=== PATIENT | male | born 1955 | race Caucasian/White ===

== ENCOUNTER 2016-02-13 16:06 | Emergency (ER) ==
[2016-02-13] MEDS ORDERED: ASPIRIN PO STA (16:10)
--- NOTE | 2016-02-13 16:56 | PROVIDER DOCUMENTATION ---
HPI-Chest Pain - General Source: patient - History of Present Illness-CP Location: reports: central Chest Pain Radiation: reports: other (R side of chest) Quality of Pain: reports: pressure, sharp Severity in ED: moderate Onset/Duration: last night Timing: still present, intermittent, getting worse Context/Activities at Onset: reports: light activity Modifying Factors: improves with: nothing Associated Symptoms: reports: diaphoresis, nausea. denies: abdominal pain, back pain, fatigue, fever/chills, shortness of breath, vomiting Nitro Today/Relief: no nitro taken today Aspirin Treatment Today: 325 mg x 1 (plus 1), provided at home Prior Chest Pain/Cardiac Workup: reports: heart attack (4) Similar Symptoms Previously?: Yes Recently Seen Here or By Another Healthcare Provider: No <Betzaida Ya - Last Filed: 02/13/16 17:24> <Erickson Page - Last Filed: 02/13/16 19:26> - General Chief Complaint: Chest Pain Stated Complaint: CHEST PAIN Time Seen by Provider: 02/13/16 16:44 Allergies/Adverse Reactions: Patient Allergies Allergy/AdvReac Type Severity Reaction Status Date / Time hydrocodone AdvReac NAUSEA/VOMI Verified 02/13/16 16:15 TING morphine AdvReac NAUSEA/VOMI Verified 02/13/16 16:15 TING Home Medications: Aspirin 325 mg PO DAILY 11/25/14 Metoprolol Succinate E.r. [Toprol Xl] 50 mg PO DAILY 11/25/14 Atorvastatin Calcium [Lipitor] 10 mg PO DAILY 10/21/15 Metoprolol [Lopressor] 50 mg PO DAILY 10/21/15 Review of Systems - Adult - REVIEW OF SYSTEMS - ADULT Constitutional: denies: chills, fever Eyes: denies: blurred vision, double vision Ears, Nose, Mouth & Throat: denies: ear pain, nose pain, throat pain Cardiovascular: reports: chest pain, irregular heart rate (tachy), palpitations . denies: heart murmur Respiratory: denies: cough, shortness of breath, wheezing Gastrointestinal: reports: nausea. denies: abdominal pain, diarrhea, vomiting Genitourinary: denies: dysuria, hematuria Musculoskeletal: denies: bone pain, joint pain, neck pain Integumentary: denies: hives, itching Neurological: denies: dizziness/vertigo, headache/migraines Psychiatric: reports: no symptoms reported Endocrine: reports: no symptoms reported Hematologic/Lymphatic: reports: no symptoms reported Allergic/Immunologic: reports: no symptoms reported All Other Systems: Reviewed and Negative <Betzaida Ya - Last Filed: 02/13/16 17:24> Past History - Adult - PAST MEDICAL HISTORY-ADULT Review of Records: reports: Nursing Assessment Review, Medications Reviewed, Social history reviewed & non-contributory. Major Childhood Illnesses: reports: denies history Cardiovascular: reports: CAD, CHF, HTN, hyperlipidemia, [place] Respiratory: reports: other (smoker) Gastrointestinal: reports: denies history Obstetrical/Gynecological: reports: denies history Genitourinary: reports: kidney stones Musculoskeletal: reports: chronic pain (chronic back pain with report of cauda equina syndrome) Neurological: reports: other (cauda equina) Psychiatric: reports: ptsd Endocrine/Immune: reports: denies history Other Conditions: reports: other (cauda equina) - PRIOR SURGERIES/PROCEDURES Surgical/Procedure History: reports: appendectomy, cardiac stent (5), hernia repair, other (testicular) - PRIOR HOSPITALIZATIONS Prior Hospitalizations: reports: for other non-related - IMMUNIZATION STATUS Childhood Immunizations: See Nurse Assessment Flu Vaccine: See Nurse Assessment - FAMILY HISTORY Family History: reviewed, not pertinent - SOCIAL HISTORY Smoking: cigarettes, greater than 1 pack/day Provider spent 3-5 mins advising pt. on dangers of tobacco.: Discussed manners to quit use, and f/u contacts for add'l counseling. Substance Use: alcohol Alcohol Use Frequency: occasionally Number of drinks per typical drinking period:: 3-4 drinks Living Situation: family <Betzaida Ya - Last Filed: 02/13/16 17:24> Physical Exam-General - PHYSICAL EXAM-ADULT Initial Vital Signs Reviewed: Yes - CONSTITUTIONAL General Appearance: appears well, alert, mild distress - EYES Eyes: PERRL/EOMI, pink conjunctivae - HEAD, EARS, NOSE, MOUTH & THROAT HENMT: normocephalic/atraumatic, moist mucous membranes, normal ENT inspection - NECK Neck: non-tender, full range of motion, normal inspection - RESPIRATORY Respiratory: chest non-tender, lungs clear, normal breath sounds, increased rate - CARDIOVASCULAR Cardiovascular: normal peripheral pulses, no edema, tachycardia - GASTROINTESTINAL (ABDOMEN) Abdominal Exam: normal bowel sounds, non tender, soft - LYMPHATIC Lymphatic: no adenopathy - MUSCULOSKELETAL Back Exam: normal inspection, no CVA tenderness, no vertebral tenderness Extremity: normal range of motion, non-tender, normal gait - SKIN Integumentary: normal color, normal turgor, warm/dry, diaphoresis - NEUROLOGIC Neurologic: developer architect II-XII nml as tested, grossly normal, no motor/sensory deficits - PSYCHIATRIC Psych/Mental Status: normal mood/affect, normal thought content, normal thought process, oriented x 3 <Betzaida Ya - Last Filed: 02/13/16 17:24> Progress - CHANGE OF SHIFT REPORT (ED Provider) Report Given and Care Transferred to:: Dr. Hollins Time of Transfer: 17:55 Items Pending: Labs, Other (EKG) <Betzaida Ya - Last Filed: 02/13/16 17:24> - EKG 1 Time of EKG reading by physician:: 16:14 EKG Read and Signed by:: Casey Manriquez EKG Interpretation (*Must complete 3 of following elements*): Abnormal Rate: 96 Rhythm: sinus rhythm with occasional and consecutive premature ventricular [place]: left QRS: RBB (incomplete) RI Interval: normal Comments: inferior infarct, age undetermined 2 Time of EKG reading by physician:: 16:11 EKG Read and Signed by:: Casey Manriquez EKG Interpretation (*Must complete 3 of following elements*): Abnormal Rate: 98 Rhythm: sinus rhythm with fusion complexes [place]: right QRS: normal RI Interval: normal Comments: biatrial enlargement; inferior-posterior infarct, age undetermined 3 Time of EKG reading by physician:: 18:40 EKG Read and Signed by:: Quinn Hollins EKG Interpretation (*Must complete 3 of following elements*): Abnormal Rate: 81 Rhythm: sinus rhytm with occasional and consecutive premature ventricular complexes [place]: left ST Wave: normal Comments: right atrial deviation; inferior infarct, age undetermined - XRAY 1 XRAY: Bilateral XRAY Study: Chest Impression: Normal XRAY Interpretation: normal <Erickson Page - Last Filed: 02/13/16 19:26> - PLAN OF CARE/RESULTS Progress/Plan/Lab Results: Orders Category Date Time Status Cardiac Monitoring DIRECTED Care 02/13/16 16:10 Active Oxygen Therapy- ED Nursing DIRECTED Care 02/13/16 16:10 Active Saline Loc NOW Care 02/13/16 16:10 Active CHEST-2 VIEWS [RAD] Stat Exams 02/13/16 16:10 Taken CBC WITH ELECTRONIC DIFF [HEME] Stat Lab 02/13/16 16:35 Results CK PROFILE [SP CHEM] Stat Lab 02/13/16 16:35 Received COMPREHENSIVE METABOLIC PANEL [CHEM] Stat Lab 02/13/16 16:35 Received MAGNESIUM [CHEM] Stat Lab 02/13/16 16:35 Received PRO B-NATRIURETIC PEPTIDE Stat Lab 02/13/16 16:[address] Received [address]IME WITH INR PL [COAG] Stat Lab 02/13/16 16:[address] [COAG] Stat Lab 02/13/16 16:35 Received TROPONIN T Stat Lab 02/13/16 16:35 Received Aspirin Med 02/13/16 16:10 Discontinued 325 mg PO STAT STA EKG [EKG] Stat Ther 02/13/16 16:10 Ordered Vital Signs - 24 hr 02/13/16 16:09 Temperature 98.2 F Pulse Rate 107 H Respiratory 20 Rate Blood Pressure 181/115 O2 Sat by Pulse 97 Oximetry Laboratory Tests 02/13/16 16:35 WBC 7.66 RBC 4.96 Hgb 16.2 Hct 47.4 MCV 95.6 MCH 32.7 H MCHC 34.2 RDW Std Deviation 13.1 Plt Count 151 MPV 11.9 H Immature Gran % (Auto) 0.3 Neut % (Auto) 67.5 Lymph % (Auto) 19.6 L [place] % (Auto) 10.7 H Eos % (Auto) 1.4 Baso % (Auto) 0.5 Immature Gran # (Auto) 0.02 Neut # (Auto) 5.17 Lymph # (Auto) 1.50 [place] # (Auto) 0.82 H Eos # (Auto) 0.11 Baso # (Auto) 0.04 (Betzaida Ya) Laboratory Tests 02/13/16 02/13/16 02/13/16 16:35 16:35 16:35 WBC RBC Hgb Hct MCV MCH MCHC RDW Std Deviation Plt Count MPV Immature Gran % (Auto) Neut % (Auto) Lymph % (Auto) [place] % (Auto) Eos % (Auto) Baso % (Auto) Immature Gran # (Auto) Neut # (Auto) Lymph # (Auto) [place] # (Auto) Eos # (Auto) Baso # (Auto) PT INR APTT (Factor Assay) Sodium 140 Potassium 3.3 L Chloride 103 Carbon Dioxide 24 L Anion Gap 12 BUN 18 Creatinine 0.9 Estimated GFR/1.73 m2 > 60 BUN/Creatinine Ratio 20 Glucose 112 H Calculated Osmolality 282 Calcium 9.0 Magnesium 1.6 Total Bilirubin 0.60 AST 28 ALT 31 Alkaline Phosphatase 112 Creatine Kinase 217 H Creatine Kinase Index 1.5 CK-MB (CK-2) 3.25 Troponin T < 0.010 Kul-N-Tkucuvchrjp Pept 657 H Total Protein 6.7 Albumin 4.1 Globulin 3.0 Albumin/Globulin Ratio 2.0 02/13/16 02/13/16 02/13/16 16:35 16:35 18:15 WBC 7.66 RBC 4.96 Hgb 16.2 Hct 47.4 MCV 95.6 MCH 32.7 H MCHC 34.2 RDW Std Deviation 13.1 Plt Count 151 MPV 11.9 H Immature Gran % (Auto) 0.3 Neut % (Auto) 67.5 Lymph % (Auto) 19.6 L [place] % (Auto) 10.7 H Eos % (Auto) 1.4 Baso % (Auto) 0.5 Immature Gran # (Auto) 0.02 Neut # (Auto) 5.17 Lymph # (Auto) 1.50 [place] # (Auto) 0.82 H Eos # (Auto) 0.11 Baso # (Auto) 0.04 PT 13.5 INR 1.00 APTT (Factor Assay) 26.3 Sodium Potassium Chloride Carbon Dioxide Anion Gap BUN Creatinine Estimated GFR/1.73 m2 BUN/Creatinine Ratio Glucose Calculated Osmolality Calcium Magnesium Total Bilirubin AST ALT Alkaline Phosphatase Creatine Kinase 210 H Creatine Kinase Index CK-MB (CK-2) Troponin T Osp-B-Cavyacazmpt Pept Total Protein Albumin Globulin Albumin/Globulin Ratio 02/13/16 18:15 WBC RBC Hgb Hct MCV MCH MCHC RDW Std Deviation Plt Count MPV Immature Gran % (Auto) Neut % (Auto) Lymph % (Auto) [place] % (Auto) Eos % (Auto) Baso % (Auto) Immature Gran # (Auto) Neut # (Auto) Lymph # (Auto) [place] # (Auto) Eos # (Auto) Baso # (Auto) PT INR APTT (Factor Assay) Sodium Potassium Chloride Carbon Dioxide Anion Gap BUN Creatinine Estimated GFR/1.73 m2 BUN/Creatinine Ratio Glucose Calculated Osmolality Calcium Magnesium Total Bilirubin AST ALT Alkaline Phosphatase Creatine Kinase Creatine Kinase Index CK-MB (CK-2) Troponin T < 0.010 Ugc-P-Akoxgulsqzj Pept Total Protein Albumin Globulin Albumin/Globulin Ratio Orders Category Date Time Status Cardiac Monitoring DIRECTED Care 02/13/16 16:10 Active Oxygen Therapy- ED Nursing DIRECTED Care 02/13/16 16:10 Active Saline Loc NOW Care 02/13/16 16:10 Active CHEST-2 VIEWS [RAD] Stat Exams 02/13/16 16:10 Draft CBC WITH ELECTRONIC DIFF [HEME] Stat Lab 02/13/16 16:35 Completed CK PROFILE [SP CHEM] Stat Lab 02/13/16 16:35 Completed CK PROFILE [SP CHEM] Stat Lab 02/13/16 18:15 Results COMPREHENSIVE METABOLIC PANEL [CHEM] Stat Lab 02/13/16 16:35 Completed MAGNESIUM [CHEM] Stat Lab 02/13/16 16:35 Completed PRO B-NATRIURETIC PEPTIDE Stat Lab 02/13/16 16:[address]IME WITH INR [address] [COAG] Stat Lab 02/13/16 16:[address] [COAG] Stat Lab 02/13/16 16:35 Completed TROPONIN T Stat Lab 02/13/16 16:35 Completed TROPONIN T Stat Lab 02/13/16 18:15 Completed Aspirin Med 02/13/16 16:10 Discontinued 325 mg PO STAT STA Clopidogrel [Plavix] Med 02/13/16 17:57 Discontinued 75 mg PO NOW ONE LISINOpril [Prinivil] Med 02/13/16 17:57 Discontinued 20 mg PO NOW ONE Metoprolol [Lopressor] Med 02/13/16 17:57 Discontinued 50 mg PO NOW ONE Spironolactone [Aldactone] Med 02/13/16 19:21 Discontinued 25 mg PO NOW ONE EKG [EKG] Stat Ther 02/13/16 16:10 Ordered EKG [EKG] Stat Ther 02/13/16 17:59 Ordered Vital Signs Temp Pulse Resp BP Pulse Ox 02/13/16 16:09 98.2 F 107 H 20 181/115 97 hydrocodone Adverse Reaction (Verified 02/13/16 16:15) NAUSEA/VOMITING morphine Adverse Reaction (Verified 02/13/16 16:15) NAUSEA/VOMITING Aspirin 325 mg PO DAILY 11/25/14 Metoprolol Succinate E.r. [Toprol Xl] 50 mg PO DAILY 11/25/14 Atorvastatin Calcium [Lipitor] 10 mg PO DAILY 10/21/15 Metoprolol [Lopressor] 50 mg PO DAILY 10/21/15 Oxycodone/APAP 10 mg/325 mg [Percocet-10] 1 each PO Q4H PRN PRN #40 tablet 10/20 Tamsulosin [Flomax] 0.4 mg PO DAILY #7 capsule 10/21/15 Atorvastatin Calcium [Lipitor] 10 mg PO DAILY #30 tablet 02/13/16 Clopidogrel [Plavix] 75 mg PO DAILY #30 tablet 02/13/16 Lisinopril 20 mg PO DAILY #30 tablet 02/13/16 Metoprolol [Lopressor] 50 mg PO BID #60 tablet 02/13/16 Spironolactone [Aldactone] 25 mg PO BID #60 tablet 02/13/16 Laboratory 02/13/16 02/13/16 02/13/16 18:15 18:15 16:35 WBC RBC Hgb Hct MCV MCH MCHC RDW Std Deviation Plt Count MPV Immature Gran % (Auto) Neut % (Auto) Lymph % (Auto) [place] % (Auto) Eos % (Auto) Baso % (Auto) Immature Gran # (Auto) Neut # (Auto) Lymph # (Auto) [place] # (Auto) Eos # (Auto) Baso # (Auto) PT 13.5 INR 1.00 APTT (Factor Assay) 26.3 Sodium Potassium Chloride Carbon Dioxide Anion Gap BUN Creatinine Estimated GFR/1.73 m2 BUN/Creatinine Ratio Glucose Calculated Osmolality Calcium Magnesium Total Bilirubin AST ALT Alkaline Phosphatase Creatine Kinase 210 H Creatine Kinase Index CK-MB (CK-2) Troponin T < 0.010 Nwk-R-Yccnnfozvwy Pept Total Protein Albumin Globulin Albumin/Globulin Ratio 02/13/16 02/13/16 02/13/16 16:35 16:35 16:35 WBC 7.66 RBC 4.96 Hgb 16.2 Hct 47.4 MCV 95.6 MCH 32.7 H MCHC 34.2 RDW Std Deviation 13.1 Plt Count 151 MPV 11.9 H Immature Gran % (Auto) 0.3 Neut % (Auto) 67.5 Lymph % (Auto) 19.6 L [place] % (Auto) 10.7 H Eos % (Auto) 1.4 Baso % (Auto) 0.5 Immature Gran # (Auto) 0.02 Neut # (Auto) 5.17 Lymph # (Auto) 1.50 [place] # (Auto) 0.82 H Eos # (Auto) 0.11 Baso # (Auto) 0.04 PT INR APTT (Factor Assay) Sodium Potassium Chloride Carbon Dioxide Anion Gap BUN Creatinine Estimated GFR/1.73 m2 BUN/Creatinine Ratio Glucose Calculated Osmolality Calcium Magnesium Total Bilirubin AST ALT Alkaline Phosphatase Creatine Kinase Creatine Kinase Index CK-MB (CK-2) Troponin T < 0.010 Qkr-S-Gotsbnrjfaj Pept 657 H Total Protein Albumin Globulin Albumin/Globulin Ratio 02/13/16 16:35 WBC RBC Hgb Hct MCV MCH MCHC RDW Std Deviation Plt Count MPV Immature Gran % (Auto) Neut % (Auto) Lymph % (Auto) [place] % (Auto) Eos % (Auto) Baso % (Auto) Immature Gran # (Auto) Neut # (Auto) Lymph # (Auto) [place] # (Auto) Eos # (Auto) Baso # (Auto) PT INR APTT (Factor Assay) Sodium 140 Potassium 3.3 L Chloride 103 Carbon Dioxide 24 L Anion Gap 12 BUN 18 Creatinine 0.9 Estimated GFR/1.73 m2 > 60 BUN/Creatinine Ratio 20 Glucose 112 H Calculated Osmolality 282 Calcium 9.0 Magnesium 1.6 Total Bilirubin 0.60 AST 28 ALT 31 Alkaline Phosphatase 112 Creatine Kinase 217 H Creatine Kinase Index 1.5 CK-MB (CK-2) 3.25 Troponin T Zxd-L-Hjkvgrjjssi Pept Total Protein 6.7 Albumin 4.1 Globulin 3.0 Albumin/Globulin Ratio 2.0 (Erickson Page) Departure <Betzaida Ya - Last Filed: 02/13/16 17:24> - Departure Time of Disposition Order: 19:25 Certified Medical Emergency: Emergent <Erickson Page - Last Filed: 02/13/16 19:26> - Departure DIAGNOSIS: Non-cardiac chest pain Disposition: HOME 01 Condition: Stable Additional Instructions: ED Follow Up Instructions: You have been treated by a care provider in the Emergency Department. These instructions are being provided to you so you can have an understanding of how to care for yourself upon discharge. Upon discharge from the Emergency Department, you are responsible for making arrangements for follow-up care by a physician of your choice. Take all prescribed medications as directed. Return to the Emergency Department immediately for any new or worsening symptoms. You may call the Physician Referral phone number at [phone] to obtain a list of Physicians who are taking new patients. Prescriptions: Spironolactone [Aldactone] 25 mg PO BID #60 tablet Atorvastatin Calcium [Lipitor] 10 mg PO DAILY #30 tablet Lisinopril 20 mg PO DAILY #30 tablet Metoprolol [Lopressor] 50 mg PO BID #60 tablet Clopidogrel [Plavix] 75 mg PO DAILY #30 tablet Referrals: Haylee Reynolds MD [Primary Care Provider] - Attestation - Scribe Verification/Attestation Scribe:: Betzaida Ya Acting as Scribe for:: Casey Manriquez Scribe documention review:: This chart was documented by a scribe and accurately reflects the service the provider performed and the decisions made by the provider. - Scribe Verification/Attestation #2 Shift Change Time: 17:55 Scribe Name: Erickson Page Acting as Scribe for:: Quinn Hollins <Betzaida Ya - Last Filed: 02/13/16 17:24> Physician Attestation
[2016-02-13 16:58] LABS: MANUAL DIFF NEEDED? NO
[2016-02-13 17:02] LABS: BASO% 0.5 % (0.0-0.8); EOS# 0.11 X1000 (0.0-0.7); EOS% 1.4 % (0.0-10.0); HEMATOCRIT 47.4 % (42.0-52.0); HEMOGLOBIN 16.2 g/dL (14.0-18.0); IMM GRAN# 0.02 X1000 (0.0-0.04); IMM GRAN% 0.3 % (0.0-0.5); LYMPH% 19.6 % (20.5-51.1); MCH 32.7 PG (27-31); MCHC 34.2 g/dL (33-37); MCV 95.6 FL (81-99); MONO# 0.82 X1000 (0.11-0.59); MONO% 10.7 % (1.7-9.3); MPV 11.9 FL (7.4-10.4); NEUT% 67.5 % (42.2-75.2); PLT 151 X1000 (130-400); RBC 4.96 XMIL (4.7-6.1)
--- NOTE | 2016-02-13 17:14 | Diag Imaging Result Document ---
PROCEDURE NAME: CHEST-2 VIEWS - 02/13/2016 CHEST, 2 VIEWS: INDICATION: Chest pain. COMPARISON: 11/25/2014 and earlier. FINDINGS: The cardiomediastinal silhouette is within normal limits. There are stable prominent interstitial markings at the bases. No acute infiltrates or effusions are identified. There are postsurgical changes lower cervical spine. IMPRESSION: Stable chest with mild basilar fibrosis. No acute abnormalities.
[2016-02-13 17:17] LABS: PROTIME 13.5 Seconds (12.1-15.5)
[2016-02-13 17:18] LABS: PTT PL 26.3 Seconds (22.6-43.9)
[2016-02-13 17:30] LABS: AGAP 12; ALBUMIN 4.1 g/dL (3.5-5.0); ALKALINE PHOSPHATASE 112 U/L (32-122); BUN 18 mg/dL (8-22); CHLORIDE 103 mmol/L (98-107); COSMO 282; GOT 28 U/L (10-34); GPT 31 U/L (10-44); MAGNESIUM 1.6 mg/dL (1.5-2.7); POTASSIUM 3.3 mmol/L (3.5-5.1); SODIUM 140 mmol/L (136-145); TCO2 24 mmol/L (25-35); TOTAL PROTEIN 6.7 g/dL (6.3-8.3)
[2016-02-13 17:43] LABS: CK PROFILE 217 U/L (24-204)
[2016-02-13] MEDS ORDERED: LOPRESSOR PO ONE (17:57)
[2016-02-13] MEDS ORDERED: PRINIVIL PO ONE (17:57)
[2016-02-13] MEDS ORDERED: PLAVIX PO ONE (17:57)
[2016-02-13 18:11] LABS: CK INDEX 1.5 (0.0-2.5); CK-MB 3.25 ng/mL (0.0-5.0)
[2016-02-13] MEDS ORDERED: ALDACTONE PO ONE (19:21)
--- NOTE | 2016-02-13 19:26 | EKG Report ---
Test Performed on : 02/13/2016 6:40:32 PM Test Reason : repeat Blood Pressure : / mmHG Vent. Rate : 081 BPM Atrial Rate : 081 BPM P-R Int : 162 ms QRS Dur : 110 ms QT Int : 400 ms P-R-T Axes : 066 -63 041 degrees QTc Int : 464 ms Sinus rhythm. with occasional and consecutive premature ventricular complexes. Right atrial enlargement Left axis deviation Inferior infarct , age undetermined Abnormal ECG When compared with ECG of 25-NOV-2014 21:49, Significant changes have occurred Unconfirmed Result
--- NOTE | 2016-02-13 19:29 | EKG Report ---
Test Performed on : 02/13/2016 4:14:45 PM Test Reason : CP Blood Pressure : / mmHG Vent. Rate : 096 BPM Atrial Rate : 096 BPM P-R Int : 168 ms QRS Dur : 092 ms QT Int : 380 ms P-R-T Axes : 064 -53 063 degrees QTc Int : 480 ms Sinus rhythm. with occasional and consecutive premature ventricular complexes. Biatrial enlargement Left axis deviation Incomplete right bundle branch block Inferior infarct (cited on or before 13-FEB-2016) Abnormal ECG When compared with ECG of 13-FEB-2016 16:11, (Unconfirmed) fusion complexes are no longer present premature ventricular complexes. are now present Unconfirmed Result
[2016-02-13 19:31] LABS: CK INDEX 1.6 (0.0-2.5); CK-MB 3.34 ng/mL (0.0-5.0)
[2016-02-13 19:37] VITALS: BP 156/99
== END 2016-02-13 19:50 | disposition home or self-care (01) ==
LOC: P.ED 16:06
DX: R07.89 Other chest pain (principal); R00.0 Tachycardia, unspecified; R00.2 Palpitations; R11.0 Nausea; I25.10 Atherosclerotic heart disease of native coronary artery without angina pectoris; I10 Essential (primary) hypertension; E78.5 Hyperlipidemia, unspecified; I25.2 Old myocardial infarction; Z87.442 Personal history of urinary calculi; M54.9 Dorsalgia, unspecified; G89.29 Other chronic pain; G83.4 Cauda equina syndrome; R61 Generalized hyperhidrosis; R94.31 Abnormal electrocardiogram [ECG] [EKG]; F43.10 Post-traumatic stress disorder, unspecified; F17.210 Nicotine dependence, cigarettes, uncomplicated; Z71.6 Tobacco abuse counseling; Z95.5 Presence of coronary angioplasty implant and graft; Z79.899 Other long term (current) drug therapy; Z79.82 Long term (current) use of aspirin
CPT/HCPCS: 71020; 80053; 82550; 82553; 83735; 83880; 84484; 85025; 85610; 85730; 93005; 99285

== ENCOUNTER 2019-04-02 06:25 | Inpatient (IN) ==
[2019-04-02 06:43] LABS: BASO# 0.03 X1000 (0.0-0.2); BASO% 0.3 % (0.0-0.8); HEMATOCRIT 47.4 % (42.0-52.0); HEMOGLOBIN 15.6 g/dL (14.0-18.0); IMM GRAN# 0.02 X1000 (0.0-0.04); IMM GRAN% 0.2 % (0.0-0.5); LYMPH# 2.14 X1000 (1.2-3.4); LYMPH% 21.5 % (20.5-51.1); MCH 30.9 PG (27-31); MCHC 32.9 g/dL (33-37); MCV 93.9 FL (81-99); MONO# 0.67 X1000 (0.11-0.59); MONO% 6.7 % (1.7-9.3); MPV 10.1 FL (7.4-10.4); NEUT# 6.81 X1000 (1.4-6.5); NEUT% 68.3 % (42.2-75.2); PLT 241 X1000 (130-400); RBC 5.05 XMIL (4.7-6.1); RDW 13.9 % (11.5-14.5); WBC 9.97 X1000 (4.8-10.8)
[2019-04-02 06:56] LABS: INR 1.04; PROTIME 13.7 Seconds (11.0-16.0); PTT 31.5 Seconds (22.3-41.8)
[2019-04-02 07:07] LABS: AGAP 16; ALB/GLOB RATIO 1.6; ALBUMIN 4.2 g/dL (3.5-5.0); ALKALINE PHOSPHATASE 121 U/L (32-122); BUN 23 mg/dL (8-22); CALCIUM 9.3 mg/dL (8.8-10.2); CHLORIDE 100 mmol/L (98-107); CK PROFILE 112 U/L (24-204); COSMO 287; CREATININE 0.8 mg/dL (0.7-1.2); ESTIMATED GFR > 60; GLUCOSE 131 mg/dL (70-104); GOT 15 U/L (10-34); GPT 14 U/L (10-44); POTASSIUM 3.5 mmol/L (3.5-5.1); SODIUM 141 mmol/L (136-145); TCO2 25 mmol/L (25-35); TOTAL BILIRUBIN 0.77 mg/dL (0.20-1.00); TOTAL PROTEIN 6.8 g/dL (6.3-8.3)
--- NOTE | 2019-04-02 07:11 | PROVIDER DOCUMENTATION ---
HPI-Chest Pain - General Chief Complaint: Chest Pain Stated Complaint: cp/sob Time Seen by Provider: 04/02/19 06:54 Source: patient Allergies/Adverse Reactions: Patient Allergies Allergy/AdvReac Type Severity Reaction Status Date / Time codeine AdvReac Unknown Verified 04/02/19 06:45 hydrocodone AdvReac NAUSEA/VOMI Verified 04/02/19 06:45 TING morphine AdvReac NAUSEA/VOMI Verified 04/02/19 06:45 TING Home Medications: Home Medication List Medication Instructions Recorded Confirmed Last Taken Type Clopidogrel [Plavix] 75 mg PO DAILY #90 tab 08/02/17 04/02/19 Unknown Rx Metoprolol [Lopressor] 25 mg PO BID #180 tab 08/02/17 03/22/19 Unknown Rx Clonazepam [Klonopin] 1 mg PO BID #60 tab 10/11/17 03/22/19 Unknown Rx Bupropion S.r. [Wellbutrin Sr] 300 mg PO QAM #60 tab 11/18/17 03/22/19 Unknown Rx Cyanocobalamin 1,000 microgm IM Q7D #3 vial 11/18/17 03/22/19 Unknown Rx Hydrocodone/APAP 7.5 mg/325 mg 1 ea PO Q6H PRN PRN #12 tab 03/12/19 03/22/19 Unknown Rx [Malin-7.5] Ondansetron Odt [Zofran 4 mg Odt] 4 mg PO Q6H PRN PRN #15 tab 03/12/19 03/22/19 Unknown Rx Furosemide [Lasix] 40 mg PO DAILY #10 tab 03/22/19 Unknown Rx - History of Present Illness-CP Nature of Presenting Problem: 63 y/o WM with hx of CAD, CHF, COPD c/o CP with SOB since 6am today and states that this is similar to his previous DE's. Pt continues to smoke despite COPD and CAD ongoing. EMS noted SATS were 90% on RA at time of arrival in the ER. Location: reports: central Chest Pain Radiation: reports: arms Quality of Pain: reports: aching, pressure Severity in ED: moderate Onset/Duration: 1 hour ago Timing: still present Context/Activities at Onset: reports: rest Modifying Factors: improves with: rest Associated Symptoms: reports: nausea, shortness of breath Nitro Today/Relief: no nitro taken today Aspirin Treatment Today: no aspirin today Prior Chest Pain/Cardiac Workup: reports: heart attack Similar Symptoms Previously?: Yes Recently Seen Here or By Another Healthcare Provider: No Review of Systems - Adult - REVIEW OF SYSTEMS - ADULT Constitutional: reports: no symptoms reported, see HPI Eyes: reports: no symptoms reported, see HPI Ears, Nose, Mouth & Throat: reports: no symptoms reported, see HPI Cardiovascular: reports: see HPI, chest pain Respiratory: reports: see HPI, shortness of breath Gastrointestinal: reports: see HPI, nausea Genitourinary: reports: no symptoms reported, see HPI Musculoskeletal: reports: no symptoms reported, see HPI Integumentary: reports: no symptoms reported, see HPI Neurological: reports: no symptoms reported, see HPI Psychiatric: reports: no symptoms reported, see HPI Endocrine: reports: no symptoms reported, see HPI Hematologic/Lymphatic: reports: no symptoms reported, see HPI Allergic/Immunologic: reports: no symptoms reported, see HPI All Other Systems: Reviewed and Negative Past History - Adult - PAST MEDICAL HISTORY-ADULT Review of Records: reports: Nursing Assessment Review, Medications Reviewed, Social history reviewed & non-contributory. Major Childhood Illnesses: reports: denies history Cardiovascular: reports: CAD, CHF, HTN, hyperlipidemia, DE Respiratory: reports: other (smoker) Gastrointestinal: reports: denies history Obstetrical/Gynecological: reports: denies history Genitourinary: reports: kidney stones Musculoskeletal: reports: chronic pain (chronic back pain with report of cauda equina syndrome), intervertebral disc disease Neurological: reports: other (cauda equina) Psychiatric: reports: ptsd Endocrine/Immune: reports: denies history Other Conditions: reports: other (cauda equina) - PRIOR SURGERIES/PROCEDURES Surgical/Procedure History: reports: appendectomy, cardiac stent (5), hernia repair, other (testicular) - PRIOR HOSPITALIZATIONS Prior Hospitalizations: reports: for other non-related - IMMUNIZATION STATUS Childhood Immunizations: See Nurse Assessment Flu Vaccine: See Nurse Assessment - FAMILY HISTORY Family History: reviewed, not pertinent Physical Exam-General - PHYSICAL EXAM-ADULT Initial Vital Signs Reviewed: Yes - CONSTITUTIONAL General Appearance: appears well, alert, no apparent distress - EYES Eyes: PERRL/EOMI - HEAD, EARS, NOSE, MOUTH & THROAT HENMT: normocephalic/atraumatic, moist mucous membranes, normal ENT inspection - NECK Neck: non-tender, full range of motion, supple, normal inspection - RESPIRATORY Respiratory: chest non-tender, normal breath sounds, no pleuratic chest pain, no respiratory distress, no accessory muscle use, wheezing (mild wheezing on rt noted) - CARDIOVASCULAR Cardiovascular: normal peripheral pulses, regular rate, rhythm, no edema, no gallop, no JVD, no murmur - GASTROINTESTINAL (ABDOMEN) Abdominal Exam: normal bowel sounds, non tender, soft, no organomegaly, no pulsatile mass - LYMPHATIC Lymphatic: no adenopathy - MUSCULOSKELETAL Back Exam: normal inspection, no CVA tenderness, no vertebral tenderness Extremity: normal range of motion, non-tender, normal gait, normal inspection, no pedal edema, no calf tenderness, normal capillary refill - SKIN Integumentary: normal color, normal turgor - 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, grossly normal, no motor/sensory deficits - PSYCHIATRIC Psych/Mental Status: normal mood/affect, normal thought content, normal thought process, oriented x 3 - HEART Score HEART Score: History: Moderately Suspicious HEART Score: ECG: Non-Specific Repolarization Disturbance/LBBB/PM HEART Score: Age: > or = 65 Years HEART Score: Risk Factors for Atherosclerotic Disease: > or = 3 Risk Factors or History of Atherosclerotic Disease HEART Score: Troponin: < or = Normal Limit Total HEART Score:: 6 Progress - PLAN OF CARE/RESULTS Progress/Plan/Lab Results: Vital Signs - 8 hr 04/02/19 06:32 Temperature 97.8 F Pulse Rate 101 H Respiratory Rate 20 Blood Pressure 138/89 O2 Sat by Pulse Oximetry 91 L Laboratory Results - last 24 hr 04/02/19 04/02/19 04/02/19 06:32 06:32 06:32 WBC RBC Hgb Hct MCV MCH MCHC RDW Std Deviation Plt Count MPV Immature Gran % (Auto) Neut % (Auto) Lymph % (Auto) Letcher % (Auto) Eos % (Auto) Baso % (Auto) Immature Gran # (Auto) Neut # (Auto) Lymph # (Auto) Letcher # (Auto) Eos # (Auto) Baso # (Auto) PT INR PTT (Actin FS) Sodium 141 Potassium 3.5 Chloride 100 Carbon Dioxide 25 Anion Gap 16 BUN 23 H Creatinine 0.8 Estimated GFR/1.73 m2 > 60 BUN/Creatinine Ratio 29 Glucose 131 H Calculated Osmolality 287 Calcium 9.3 Total Bilirubin 0.77 AST 15 ALT 14 Alkaline Phosphatase 121 Creatine Kinase 112 Troponin T High Sens 15 Peb-Q-Cpdqzktjplf Pept 639 H Total Protein 6.8 Albumin 4.2 Globulin 2.6 Albumin/Globulin Ratio 1.6 04/02/19 04/02/19 06:32 06:32 WBC 9.97 RBC 5.05 Hgb 15.6 Hct 47.4 MCV 93.9 MCH 30.9 MCHC 32.9 L RDW Std Deviation 13.9 Plt Count 241 MPV 10.1 Immature Gran % (Auto) 0.2 Neut % (Auto) 68.3 Lymph % (Auto) 21.5 Letcher % (Auto) 6.7 Eos % (Auto) 3.0 Baso % (Auto) 0.3 Immature Gran # (Auto) 0.02 Neut # (Auto) 6.81 H Lymph # (Auto) 2.14 Letcher # (Auto) 0.67 H Eos # (Auto) 0.30 Baso # (Auto) 0.03 PT 13.7 INR 1.04 PTT (Actin FS) 31.5 Sodium Potassium Chloride Carbon Dioxide Anion Gap BUN Creatinine Estimated GFR/1.73 m2 BUN/Creatinine Ratio Glucose Calculated Osmolality Calcium Total Bilirubin AST ALT Alkaline Phosphatase Creatine Kinase Troponin T High Sens Jwl-H-Xtzfpgehrrf Pept Total Protein Albumin Globulin Albumin/Globulin Ratio Orders Category Date Time Status Cardiac Monitoring DIRECTED Care 04/02/19 06:35 Active Oxygen Therapy- ED Nursing DIRECTED Care 04/02/19 06:35 Active Saline Loc NOW Care 04/02/19 06:35 Active CHEST-2 VIEWS [RAD] Stat Exams 04/02/19 06:35 Completed CBC WITH ELECTRONIC DIFF [HEME] Stat Lab 04/02/19 06:32 Completed CK PROFILE [SP CHEM] Stat Lab 04/02/19 06:32 Completed COMPREHENSIVE METABOLIC PANEL [CHEM] Stat Lab 04/02/19 06:32 Completed PRO B-NATRIURETIC PEPTIDE Stat Lab 04/02/19 06:32 Completed PROTIME WITH INR [COAG] Stat Lab 04/02/19 06:32 Completed PTT [COAG] Stat Lab 04/02/19 06:32 Completed TROPONIN T HIGH SENSITIVITY Stat Lab 04/02/19 06:32 Completed Albuterol 2.5MG/Ipratrop 0.5MG [Duoneb (A & A)] Med 04/02/19 07:51 Discontinued 3 ml INH NOW ONE Aspirin Med 04/02/19 07:13 Discontinued 325 mg PO NOW ONE Furosemide [Lasix] Med 04/02/19 07:51 Discontinued 20 mg IV NOW ONE Methylprednisolone Sod Succ [Solu-Medrol] Med 04/02/19 07:51 Discontinued 125 mg IV NOW ONE Ondansetron [Zofran] Med 04/02/19 07:13 Discontinued 4 mg IV NOW ONE Aerosol Treatments Routine Oth 04/02/19 07:52 Active Aerosol Treatments Stat Oth 04/02/19 07:52 Active CP/SOB/Palp >45 yrs of Age Stat Oth 04/02/19 06:35 Ordered EKG [EKG] Stat Ther 04/02/19 06:22 Ordered Pt declines transfer to [facility] and wants to stay here. Result Diagrams: 04/02/19 06:32 04/02/19 06:32 - CONSULTS/PCP/HOSPITALIST Notification #1 *Consult/PCP/Hospitalist*: Rula [employer]CHITECT for hospitalist Time Discussed: 08:20 Consult Disposition: Will see in ED, Admit Departure - Departure Date of Disposition Decision: 04/02/19 Time of Disposition Decision: 08:14 DIAGNOSIS: CHF exacerbation, COPD (chronic obstructive pulmonary disease), Chest pain Disposition: ADMITTED INPATIENT 09 Certified Medical Emergency: Emergent Condition: Fair Referrals and Follow-Ups: None,PCP [Primary Care Provider] - - Critical Care Note This patient required my direct & personal management of CC.: No Attestation - Physician/ ALF Attestation Patient care was provided by Advanced Practice Provider:: No The physician spent face to face time with patient:: Yes Advanced Practice Provider documentation review:: Supervising physician onsite and consulted in the evaluation and care of this patient. The physician did have a face to face encounter with the patient.
[2019-04-02] MEDS ORDERED: ZOFRAN IV ONE (07:13)
[2019-04-02] MEDS ORDERED: ASPIRIN PO ONE (07:13)
--- NOTE | 2019-04-02 07:20 | Diag Imaging Result Doc PS360 ---
EXAM: CHEST-2 VIEWS HISTORY: cp TECHNIQUE: Chest two views COMPARISON: 03/22/2019 FINDINGS: The lungs are well expanded. The heart is not enlarged. The vessels are not distended. There are increased interstitial markings primarily in the lower lungs. No consolidation. No pleural effusions. IMPRESSION: Small infiltrates versus fibrosis Electronically signed by Iker Christopher 04/02/2019 7:18 AM
[2019-04-02] MEDS ORDERED: SOLU-MEDROL IV ONE (07:51)
[2019-04-02] MEDS ORDERED: LASIX IV ONE (07:51)
[2019-04-02] MEDS ORDERED: DUONEB (A & A) INH ONE (07:51)
[2019-04-02] MEDS ORDERED: ZOFRAN IV PRN (08:37)
[2019-04-02] MEDS ORDERED: PROTONIX IV ONE (09:06)
[2019-04-02] MEDS ORDERED: SODIUM CHLORIDE 0.9% INJ ONE (09:06)
[2019-04-02] MEDS ORDERED: LACTULOSE PO ONE (09:06)
[2019-04-02 10:06] LABS: UR AMPHETAMINES QUAL NONE DETECTED (NONE DETECT); UR BARBITUATES QUAL NONE DETECTED (NONE DETECT); UR BENZODIAZEPIN QUAL NONE DETECTED (NONE DETECT); UR CANNABINOIDS QUAL NONE DETECTED (NONE DETECT); UR COCAINE QUAL NONE DETECTED (NONE DETECT); UR METHADONE QUAL NONE DETECTED (NONE DETECT); UR OPIATES QUAL PRESUMPTIVE POSITIVE (NONE DETECT); UR OXYCODONE QUAL PRESUMPTIVE POSITIVE (NONE DETECT); UR PCP QUAL NONE DETECTED (NONE DETECT)
--- NOTE | 2019-04-02 10:15 | HISTORY AND PHYSICAL ---
PRIMARY CARE PROVIDER: Dr. Rivera [facility] CHIEF COMPLAINT: Chest pain, shortness of breath with nausea and vomiting. HISTORY OF PRESENT ILLNESS: Mr. Fredo Rich is a 63-year-old male with a medical history of congestive heart failure, myocardial infarction x4 with cardiac stents, COPD, who states that he has anginal-type symptoms every 2 to 3 weeks. He states that it always happens when he is lying down. It feels more midsternal like it goes from stomach to throat, and always radiates to both shoulders and in the jaw and neck. He states that he woke up at 6 o'clock this morning. He slept well last night and was having epigastric type chest tightness into both arms, the neck. He had nausea with vomiting, shortness of breath, some dizziness and lightheadedness. He stated that it was constant and it stayed there for awhile until he got here. He still continues to smoke on a daily basis about 1 pack per day. His O2 saturations were about 90 to 91 percent on room air when he arrived. Once he was given steroids, nebulizers, he states he felt much better. We will continue to monitor. PAST MEDICAL HISTORY: 1. GERD. 2. COPD. No home O2. 3. Frequent falls. 4. Kidney stones with the most recent passing a few days ago. 5. Insomnia or foxhole syndrome. 6. Chronic constipation. Only goes to the restroom or has a bowel movement every several days. 7. Cauda equina. 8. Depression. 9. Posttraumatic stress disorder with suicidal ideation and attempt in the past. 10. Hypertension. 11. Coronary artery disease with 4 myocardial infarctions and cardiac stents with the last myocardial infarction being in 2014. 12. Congestive heart failure. 13. Hyperlipidemia. 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 They are considered cystic structures that were biopsied in the past and negative for cancer. 15. Degenerative joint disease and degenerative disk disease. 16. Arthritis. 17. Angina. SURGICAL HISTORY: 1. Two back surgeries. 2. Appendectomy. 3. Vena cava cyst biopsy. 4. C6-7 cardiac stents. 5. Testicular surgery. SOCIAL HISTORY: Smokes anywhere from a half to 1 pack per day since the age of 15. He quit drinking alcohol in July of 2017. Denies any illicit drug use. He uses a walker or cane to get around. He is . No kids. He is retired [employer] and a disabled . FAMILY HISTORY: Brother had prostate and colon cancer. Mother had non-Hodgkin's lymphoma and colon cancer. Father had myocardial infarctions at the age of 52. ALLERGIES: Codeine, hydrocodone, morphine cause nausea and vomiting. HOME MEDICATIONS: The only one that looks like it has been verified is Plavix 75 mg p.o. daily. The only recent medications he has had filled: Earlier this month he had cephalexin, [place] 7.5, and Zofran. REVIEW OF SYSTEMS: Fourteen point review of systems are complete, and all were negative, except for those mentioned above in the HPI. PHYSICAL EXAMINATION: VITAL SIGNS: Temperature 97.7 degrees, heart rate 97, respiratory rate 20, blood pressure 118/82, O2 saturation 98% on 2 L nasal cannula. GENERAL: Mr. Fredo Rich is a 63-year-old male. He is in no acute distress and is able to answer questions appropriately. Patient appears to be very unkept and very unclean with dirt on the hands and under the nails and bad body odor. HEENT: Atraumatic, normocephalic. Pupils equal, round, reactive to light. Extraocular movements intact. Mucous membranes are moist. NECK: Trachea midline. CARDIOVASCULAR: S1, S2. Regular rate and rhythm. No rubs, gallops, murmurs. No lower extremity edema, +2 dorsalis and radial pulses. Negative JVD or carotid bruits. PULMONARY: Clear to auscultate/ bilateral breath sounds. Mild expiratory wheezes noted in the bases. He is tolerating 2 L nasal cannula. No accessory muscle use or work of breathing noted. GI: Soft, nontender, nondistended. Positive bowel sounds x4. EXTREMITIES: Moves all extremities equally. Decreased range of motion. NEUROLOGIC: A and O x3. Follows commands. Sensory is intact. SKIN: Warm, dry, intact, but dirty. LABORATORY DATA: White blood cells 9000, hemoglobin 15, hematocrit 47, platelet count 241. INR is 1.04, PTT is 31.5. Sodium 141, potassium 3.5, BUN 23, creatinine 0.8, glucose 131, calcium 9.3. Bilirubin 0.77, AST 15, ALT 14. CK 112, troponin is 15. ProBNP is 639. Albumin 4.2. IMAGIN. Chest x-ray: Small infiltrate versus fibrosis. 2. EKGs: No ST elevations. ASSESSMENT/PLAN: 1. Complaints of chest pain with history of angina, but this is more described as a gastroesophageal reflux disease type symptom. He has bowel movements every several days. It tends to wake him up at night. It is always when he is lying flat. It feels like it is burning, that goes up from the epigastric region all the way up to the chest and neck with severe nausea and sometimes vomiting. Currently, the symptoms have resolved, but we will go ahead and get him started on Protonix, and we will attempt to resolve his constipation at this time. We will add a stool softener and give him a dose of lactulose. 2. Chronic constipation. Please see #1. 3. Chronic obstructive pulmonary disease exacerbation, very mild in nature. We will do nebulizers, steroids, antibiotics. There are reported infiltrates, but he denies coughing up any colors or fevers. 4. Reported congestive heart failure with history of multiple myocardial infarctions. There is no lower extremity edema. He did receive 20 of Lasix in the emergency room. We will get an echocardiogram to fully evaluate heart function. 5. History of coronary artery disease and myocardial infarction with history of cardiac stents. Will continue Plavix. It looks like he probably should be on a beta lucia and a statin and aspirin, but his home medication record has not been reconciled yet, and we will likely need to get that started back for him. However, I feel like he is probably noncompliant. 6. Recent kidney stone, passing a few days ago according to him. 7. Chronic pain with degenerative disk disease, arthritis, cauda equina syndrome. He can have Tylenol as needed. It looks like he had [place] earlier in the month prescribed for him. 8. Posttraumatic stress disorder, insomnia, foxhole syndrome, history of suicidal ideation and attempt. We are waiting to see what medications he should be on at home and then we will get those resumed. Currently, he is stable. 9. Hyperlipidemia. We will get a statin started for him. Waiting for his home medications to be reconciled. 10. Tobacco abuse cessation discussed. 11. Deep venous thrombosis prophylaxis. Lovenox. Dictated by FITO Herrera for Ritu Valverde MD cc: RulaFITO Cisse MD
--- NOTE | 2019-04-02 10:22 | EKG Report ---
Test Performed on : 04/02/2019 06:30:05 AM Test Reason : CP Blood Pressure : / mmHG Vent. Rate : 107 BPM Atrial Rate : 107 BPM P-R Int : 170 ms QRS Dur : 120 ms QT Int : 380 ms P-R-T Axes : 060 011 074 degrees QTc Int : 507 ms Sinus tachycardia. Possible Left atrial enlargement Inferior infarct (cited on or before 08-NOV-2017) Marked ST abnormality, possible anterolateral subendocardial injury Abnormal ECG When compared with ECG of 22-MAR-2019 17:39, (Unconfirmed) ST more depressed in Anterolateral leads Unconfirmed Result
[2019-04-02 10:24] LABS: HEMOGLOBIN A1C 5.8 % (4.8-6.0)
[2019-04-02 10:33] LABS: FREE T4 1.33 ng/dL (0.93-1.70); TSH 0.71 uIUmL (0.27-4.20)
[2019-04-02 11:08] LABS: ALLEN TEST YES; BE 1.4 mmoll (-3.0-3.0); BLOOD TYPE ARTERIAL; HCO3-(ACT) 25.8 mmoll (20.0-26.0); METHB 0.8 % (0.0-1.5); O2(CT) 19.9 mL/dL (15.0-23.0); O2HB 91.4 % (95.0-99.0); PCO2(98.6) 43 mmHg (35-45); PO2(98.6) 138 mmHg (60-100); SAMPLE BLOOD; SAO2 98.9 % (95.0-100.0); THB 15.3 g/dL (11.5-17.4)
[2019-04-02 11:09] LABS: MODALITY CANNULA
[2019-04-02] MEDS: DUONEB (A & A) INH SCH ×4 (11:42→23:21)
[2019-04-02] MEDS: PLAVIX PO SCH (11:55)
[2019-04-02] MEDS: LOVENOX SUBQ SCH (11:55)
[2019-04-02] MEDS: ROCEPHIN 1 GM in NS 50 ML IV SCH (11:55)
--- NOTE | 2019-04-02 13:58 | ECHO REPORT ---
ORDER DATE: 04/02/2019 INTERPRETING PHYSICIAN: Dr. Julio C Guido ECHOCARDIOGRAPHIC MEASUREMENTS: 1. Interventricular septum: 1.6 cm. 2. Posterior wall: 1.0 cm. 3. Diastolic diameter: 4.8 cm. 4. Left atrium: 4.7 cm. 5. Aortic root: 3.3 cm. SUMMARY OF THE 2-DIMENSIONAL IMAGIN. Aortic valve leaflets were sclerosed, trileaflet. 2. Pulmonic valve was normal. 3. Tricuspid valve was normal. 4. Mitral valve was normal. 5. There is mild tricuspid regurgitation. Peak velocity across the tricuspid valve less than 2 m/sec. 6. There is mild mitral regurgitation. 7. Peak velocity across the aortic valve less than 2 m/sec. There is no aortic stenosis or regurgitation. 8. Normal left ventricular cavity size. There is a left ventricular hypertrophy asymmetric with an estimated ejection fraction of 60%. 9. There is no pericardial effusion or obvious intracardiac mass or thrombus seen. cc: MD Rula Sierra CRNP
[2019-04-02] MEDS ORDERED: ZOFRAN ODT PO PRN (14:40)
--- NOTE | 2019-04-02 15:26 | Diag Imaging Result Doc PS360 ---
CT THORAX W/O CONTRAST - 04/02/2019 INDICATION: pneumonia COMPARISON: Previous chest x-rays FINDINGS: There is no adenopathy. There are shotty mediastinal lymph nodes. There is advanced calcified coronary artery disease. This mainly affects the left circumflex and anterior descending arteries. Upper abdominal images are unremarkable. There is some scattered linear atelectasis in the lung bases bilaterally. There are several scattered tiny pulmonary nodules in the left upper and lower lobes. Most of these were clearly present previously. There are also a few scattered tiny pulmonary nodules mainly in the right upper lobe. Again, some were present previously. However there are clearly new pulmonary nodules bilaterally. These all measure 5.5 mm or less. There are moderate degenerative changes of the spine. No acute or suspicious bony lesion. IMPRESSION: 1. Increasing, tiny scattered bilateral pulmonary nodules. The appearance is indeterminate. 2. Scattered linear atelectasis in the lung bases. 3. Advanced coronary artery disease. This exam was performed using automated exposure control, adjustment of mA or kV according to patient size, and/or use of iterative reconstruction technique Electronically signed by Ishmael Tate 04/02/2019 3:24 PM
[2019-04-02] MEDS: SOLU-MEDROL IV SCH (16:19)
[2019-04-02] MEDS ORDERED: FLU VACCINE IM ONE (18:43)
[2019-04-02] MEDS ORDERED: LIPITOR PO SCH (21:00)
[2019-04-02] MEDS: PULMICORT INH SCH (23:21)
[2019-04-02] MEDS: PERICOLACE PO SCH (23:50)
[2019-04-02] MEDS: LOPRESSOR PO SCH (23:50)
[2019-04-03] MEDS: SOLU-MEDROL IV SCH ×2 (01:12→08:25)
--- NOTE | 2019-04-03 01:24 | PULMONOLOGY CONSULTATION ---
DATE: 04/02/2019 REQUESTING CLINICIAN: Ritu Valverde MD. REASON FOR CONSULTATION: COPD exacerbation with increasing pulmonary nodules. HISTORY OF PRESENT ILLNESS: Mr. Rich is a 63-year-old white male with a greater than 50 pack- year history for tobacco and severe coronary artery disease, who was informed 1 year ago that he needed coronary artery bypass grafting due to severe vessel disease. The patient was concerned about not waking up with anesthesia and elected not to proceed with surgery at that time. This morning he woke up with chest pain radiating into both shoulders, shortness of breath and nausea, and was brought to the emergency room by EMS. His symptoms lasted less than an hour, and have now resolved. He reports he is back to his baseline. PAST MEDICAL HISTORY: 1. Coronary artery disease with 4 myocardial infarctions and multiple cardiac stent placements as outlined above. Coronary artery bypass grafting was recommended 1 year ago. 2. Chronic obstructive pulmonary disease. 3. Reflux disease. 4. Cauda equina syndrome with chronic back pain. 5. Nephrolithiasis. 6. History of suicide attempt and posttraumatic stress disorder. 7. Status post vena cava cyst biopsy. 8. History of testicular cancer. SOCIAL HISTORY: Ongoing tobacco use. He is . No alcohol use for a year and a half. FAMILY HISTORY: Positive for Hodgkin disease, colon cancer, coronary artery disease and prostate cancer. REVIEW OF SYSTEMS: As noted in the HPI. PHYSICAL EXAMINATION: General: Reveals a well-developed, well-nourished male resting comfortably in his bed and in no distress. Vital Signs: Oxygen saturation is 99%. HEENT: Pupils are equal and reactive. Oropharynx is clear. Neck: Supple. Chest: Reveals mild prolonged expiratory phase. No wheezing or rhonchi present. Cardiac Exam: S1, S2. Abdomen: Slightly obese and soft. Extremities: Without edema. LABORATORY DATA: Arterial blood gas reveals a pH of 7.40, pCO2 of 43, PO2 of 138, with a carboxyhemoglobin of 6.7. Sodium 141, potassium 3.5, chloride 100, bicarbonate 25, BUN 23, creatinine 0.8. IMAGING: CT scan of the thorax reveals mild scarring bilaterally with small bilateral pulmonary nodules all measuring less than 6 mm. Some were present on prior scan in 2015. Some appear to be new. Advanced coronary artery disease noted. IMPRESSION: A 63-year-old with: 1. Unstable angina suspected given his history as outlined in the HPI. 2. Chronic obstructive pulmonary disease. Current chest exam is clear. Presentation not consistent with COPD exacerbation given rapid improvement. 3. Ongoing tobacco use. 4. Multiple small nodules bilaterally, some of which were present in 2015, some of which appear new. Overall appearance would be in benign. Not typical for bronchogenic carcinoma. Could be infectious/inflammatory although metastatic disease cannot be completely ruled out. 5. Obesity. 6. Chronic back pain. RECOMMENDATIONS: 1. Encourage the patient to stop smoking. 2. Consider outpatient pulmonary function studies. 3. Recommend cardiology evaluation. He is aware that he is in need of a bypass surgery. The patient may not get an opportunity to proceed with surgery if he has an acute event or a sudden cardiac . 4. Check a CEA and PSA level. 5. Recommend follow up CT scan in 3 months. cc: Manuel Carey MD
[2019-04-03] MEDS: DUONEB (A & A) INH SCH ×6 (03:17→22:54)
[2019-04-03] MEDS: NORCO-7.5 PO PRN ×2 (04:34→20:10)
[2019-04-03] MEDS: PROTONIX PO SCH (06:37)
[2019-04-03 07:48] LABS: HEMATOCRIT 42.1 % (42.0-52.0); HEMOGLOBIN 13.6 g/dL (14.0-18.0); LYMPH# 0.78 X1000 (1.2-3.4); MCH 30.6 PG (27-31); MCHC 32.3 g/dL (33-37); MCV 94.6 FL (81-99); MONO# 0.25 X1000 (0.11-0.59); MONO% 2.2 % (1.7-9.3); MPV 10.7 FL (7.4-10.4); NEUT# 10.18 X1000 (1.4-6.5); NEUT% 90.8 % (42.2-75.2); PLT 210 X1000 (130-400); RBC 4.45 XMIL (4.7-6.1); RDW 13.4 % (11.5-14.5); WBC 11.21 X1000 (4.8-10.8)
[2019-04-03] MEDS: PULMICORT INH SCH ×2 (07:48→20:20)
[2019-04-03 07:57] LABS: BANDS 2 % (0-1); LYMPHS 12 % (21-51); MONO 2 % (1-9); SEGS 82 % (42-75)
--- NOTE | 2019-04-03 07:58 | EKG Report ---
Test Performed on : 04/03/2019 07:14:07 AM Test Reason : chest pain Blood Pressure : / mmHG Vent. Rate : 088 BPM Atrial Rate : 088 BPM P-R Int : 192 ms QRS Dur : 116 ms QT Int : 378 ms P-R-T Axes : 064 017 113 degrees QTc Int : 457 ms Normal sinus rhythm. Inferior infarct (cited on or before 08-NOV-2017) ST & T wave abnormality, consider lateral ischemia Abnormal ECG When compared with ECG of 02-APR-2019 06:30, (Unconfirmed) ST no longer depressed in Anterolateral leads T wave inversion now evident in Lateral leads Confirmed by Miguel Angel PITTMAN, Hammad Ricardo ([id number]) on 04/03/2019 4:19:48 PM
[2019-04-03 08:05] LABS: AGAP 12; ALB/GLOB RATIO 1.6; ALBUMIN 3.8 g/dL (3.5-5.0); ALKALINE PHOSPHATASE 92 U/L (32-122); BUN 28 mg/dL (8-22); CALCIUM 9.1 mg/dL (8.8-10.2); CHLORIDE 98 mmol/L (98-107); COSMO 281; CREATININE 0.8 mg/dL (0.7-1.2); ESTIMATED GFR > 60; GLUCOSE 160 mg/dL (70-104); GOT 14 U/L (10-34); GPT 11 U/L (10-44); POTASSIUM 3.6 mmol/L (3.5-5.1); SODIUM 136 mmol/L (136-145); TCO2 26 mmol/L (25-35); TOTAL PROTEIN 6.2 g/dL (6.3-8.3)
[2019-04-03] MEDS: ROCEPHIN 1 GM in NS 50 ML IV SCH (08:25)
[2019-04-03] MEDS: LASIX PO SCH (08:26)
[2019-04-03] MEDS: PLAVIX PO SCH (08:26)
[2019-04-03] MEDS: PERICOLACE PO SCH ×2 (08:26→20:11)
[2019-04-03] MEDS ORDERED: PYRIDOXINE HCL PO SCH (09:00)
[2019-04-03] MEDS ORDERED: MELATONIN PO SCH (09:00)
[2019-04-03] MEDS: LOVENOX SUBQ SCH ×2 (09:04→16:03)
--- NOTE | 2019-04-03 09:17 | Diag Imaging Result Doc PS360 ---
EXAM: CHEST-2 VIEWS HISTORY: short of breath TECHNIQUE: Two views COMPARISON: 04/02/2019 FINDINGS: The lungs are well expanded. The heart is not enlarged. The vessels are not distended. There are no infiltrates. No pleural effusions. Nodules described on the recent CT are difficult to appreciate on the plain film. IMPRESSION: Interval improvement Electronically signed by Iker Christopher 04/03/2019 9:15 AM
[2019-04-03] MEDS: PRINZIDE 10/12.5MG PO SCH (11:42)
[2019-04-03] MEDS: LOPRESSOR PO SCH ×2 (11:42→20:10)
[2019-04-03] MEDS ORDERED: NS 1,000 ML IV SCH (16:00)
[2019-04-03] MEDS: ASPIRIN PO SCH (16:08)
--- NOTE | 2019-04-03 16:36 | PROGRESS NOTE ---
DATE: 04/03/2019 INTERVAL HISTORY: No acute events. SUBJECTIVE: Mr. Rich is feeling better. Denies any more chest pain or shortness of breath. We discussed about his jxr-VM-ghlkjxyej myocardial infarction. I answered all of his questions. VITAL SIGNS: Temperature 97.8 degrees, pulse 94, respiratory 18, blood pressure 95/62. He is saturating 97% on 2 nasal cannula. PHYSICAL EXAMINATION: HEENT: Oral cavity is moist. Lungs: Air entry bilaterally equal. No wheeze, rhonchi, or crackles. Cardiovascular: S1, S2 normal. No murmur or gallop. Abdomen: Soft, nontender. Extremities: No lower extremity edema. Neurologic: He is alert and oriented x3. LABS: Suggestive of WBC of 11,000, hemoglobin 13.6, platelets 210,000. Electrolytes and kidney function are normal. He did have elevated troponin which increased up to 82 and now trending down. MICROBIOLOGY: Blood cultures have been ordered. No new data. IMAGING: Chest x-ray suggestive of essentially unremarkable chest x-ray. ASSESSMENT AND PLAN: 1. Jir-TS-vpleyaozi myocardial infarction with prior history of coronary artery disease requiring multiple stents, latest being in November 2014. His EKG had marked anterolateral ST depression and he had elevated troponins. There were Q-waves in inferior leads which were not present on the EKG in 2018. I will give him an additional dose of aspirin now. Keep him on his home regimen of aspirin, clopidogrel. I will increase the dose of atorvastatin. I will start him on therapeutic dose of enoxaparin and I will consult Cardiology. It appears he came to the hospital in the morning of April 02, though he may not have received any anticoagulation until now. Appreciate Cardiology's recommendation for further management. He was previously told by the ID doctor that he may need coronary artery bypass surgery. Records have been requested. 2. Acute hypoxic respiratory failure on presentation with active tobacco abuse. The patient denies being diagnosed with COPD in the past. Currently, he is not wheezing on my examination. I will continue him on inhaled bronchodilators, budesonide. My suspicion of sepsis and COPD exacerbation is low at the moment. I will stop intravenous steroids and antibiotics. 3. Hypotension. Though his EKG changes where in anterolateral leads, he does have Q-waves in inferior lead which could suggest prior infarct. I will give him intravenous fluid and transfer him to [facility]. I will stop his diuretic. 4. Bilateral pulmonary nodules. I advised him to have outpatient followup and smoking cessation was counseled. 5. History of cauda equina syndrome and chronic pain after injury sustained in . 6. Posttraumatic stress disorder. 7. History of suicide ideation and attempt, currently stable. Continue to monitor patient in [facility]. Plan of care discussed with him. His questions have been answered. cc: David Sexton MD
--- NOTE | 2019-04-03 18:52 | CARDIOLOGY CONSULTATION ---
DATE: 04/03/2019 CONSULTATION REQUESTED BY: The hospitalist service. REASON FOR CONSULTATION: Chest pain. Coronary heart disease, abnormal troponin. HISTORY: Mr. Rich is a 63-year-old white gentleman who is known to have coronary heart disease. He presented to the emergency room on April 02 complaining of recurrent chest pain that has been going on for 2 to 3 weeks, midsternal, radiating to both of shoulders, neck and back, associated with some nausea and dyspnea. The pattern has been crescendo. His initial EKG in the emergency room showed sinus rhythm with ST depression quite marked in the leads V3, V4, V5, V6. There was Q-waves in inferior leads. The subsequent EKG this morning at 7:14 a.m. showed no significant abnormalities. The troponin levels were checked and the first one was 15, subsequently 72, then 82 and the final one is 69 mg/L. His chest x-ray on admission showed small infiltrate versus fibrosis. Chest CT has been done and shows tiny scattered bilateral pulmonary nodules, indeterminate appearance, scattered linear atelectasis in both bases. Echocardiogram done yesterday shows normal EF of 60%. Telemetry shows sinus tachycardia with some diffuse ST abnormalities. The patient is feeling better now. PAST MEDICAL HISTORY: Positive for severe coronary heart disease. He has had previous heart catheterizations and interventions and they mentioned to him the need for surgical revascularization at some point. The last intervention was with Dr. Avel Martins on 11/25/2014. At that time they did emergent catheterization with thrombectomy of proximal circumflex with bare metal stent. The patient got lost to follow-up. He has been followed clinically by the [facility] in [place], Dr. Turner. He has COPD, advanced. He has a cauda equina syndrome with chronic pain. He has kidney disease. He has PTSD. He has had history of some vena cava benign cystic abnormalities. SURGICAL HISTORY: He has had lumbar surgery in the past, testicular surgery, appendectomy and biopsy of vena cava cyst. SOCIAL HISTORY: He is . He retired from the [employer]. He has been a smoker of half a pack to 1 pack a day. He has been also drinker in the past. FAMILY HISTORY: Cancer in brother and mother also. The father had myocardial infarction. HOME MEDICATIONS: Included atorvastatin 10 mg daily, clopidogrel 75 mg daily, furosemide 40 mg daily, hydrocodone APAP 7.5/325 daily, lisinopril/hydrochlorothiazide 10/12.5 mg daily, metoprolol 25 b.i.d. ALLERGIES TO: Codeine, hydrocodone, morphine. REVIEW OF SYSTEMS: His ambulation is limited by chronic back pain. He is also chronically short of breath. PHYSICAL EXAMINATION: Vital signs: Blood pressure 95/62, temperature 97.8 degrees, pulse 94, respirations 20, appears to be older than his stated age, somewhat disheveled. HEENT: Unremarkable. Chest: Diminished breath sounds diffusely. Heart: Sounds are regular rhythmic, question of systolic aortic murmur. Abdomen: Soft, nontender. Extremities: Showed bilateral femoral bruits with very decreased pulses in the popliteal area and I can really not feel dorsalis pedis or posterior tibialis pulses. They are very diminished. Neurologic: Nonfocal. Moves 4 extremities. BLOOD WORK: Sodium is 136, potassium 3.3, BUN 28, creatinine 0.8. Glucose 160. Hemoglobin A1c was 5.8%. LDL cholesterol 136, total cholesterol 182, HDL 35. IMPRESSION: 1. Patient who has non-ST elevation myocardial infarction. 2. History of severe CAD. Prior DC, multivessel dz. 3. The patient has chronic obstructive pulmonary disease, advanced. 4. chronic back pain. 5. He is a tobacco user. RECOMMENDATION: I discussed with the patient the next steps. Given the presentation with unstable angina, ECG changes, and elevation of troponin, I believe he really needs to pursue heart catheterization. Benefits, risks and complications discussed. He wishes to go to [facility] for that procedure since they have already treated him over there. I will make arrangements in the morning. cc: Elder Carlisle MD [facility]
--- NOTE | 2019-04-03 20:06 | PULMONOLOGY PROGRESS NOTE ---
DATE: 04/03/2019 SUBJECTIVE: The patient is awake and alert. He reports he has had a good day. He has denied having additional chest pain. OBJECTIVE: Vital Signs: The patient has been afebrile for the last 24 hours. Blood pressure 95/62, heart rate 94, respiratory rate 18, oxygen saturation 97%. HEENT: Pupils are equal and reactive. Oropharynx is clear. Neck: Is supple Chest: Reveals good air entry bilaterally without wheezing or rhonchi cardiac exam S1-S.2 Abdomen: Is soft. Extremities: Without edema. LABORATORIES: Troponin level this morning has decreased 60. IMPRESSION: A 63-year-old with 1. Unstable angina with non-Q-wave myocardial infarction. 2. Chronic obstructive pulmonary disease. 3. Ongoing tobacco use. 4. Multiple pulmonary nodules. 5. Obesity. 6. Chronic back pain. RECOMMENDATIONS: 1. Anticipate transfer to [facility] as outlined by Dr. Carlisle. 2. Encourage patient to stop smoking. 3. Recommend followup CT scan in 3 months. cc: Manuel Carey MD
[2019-04-03] MEDS ORDERED: ZOFRAN ONE (20:16)
[2019-04-03] MEDS ORDERED: LIPITOR PO SCH (21:00)
[2019-04-04] MEDS: DUONEB (A & A) INH SCH ×4 (03:31→15:07)
[2019-04-04] MEDS: LOVENOX SUBQ SCH ×2 (06:20→15:18)
[2019-04-04] MEDS: PROTONIX PO SCH (06:21)
[2019-04-04 06:24] LABS: HEMATOCRIT 40.8 % (42.0-52.0); HEMOGLOBIN 12.9 g/dL (14.0-18.0); IMM GRAN# 0.03 X1000 (0.0-0.04); IMM GRAN% 0.2 % (0.0-0.5); LYMPH# 1.24 X1000 (1.2-3.4); LYMPH% 7.4 % (20.5-51.1); MCH 30.3 PG (27-31); MCHC 31.6 g/dL (33-37); MCV 95.8 FL (81-99); MPV 11.1 FL (7.4-10.4); NEUT# 14.42 X1000 (1.4-6.5); NEUT% 86.4 % (42.2-75.2); PLT 198 X1000 (130-400); RBC 4.26 XMIL (4.7-6.1); RDW 13.5 % (11.5-14.5); WBC 16.69 X1000 (4.8-10.8)
[2019-04-04 06:46] LABS: AGAP 11; ALB/GLOB RATIO 1.3; ALBUMIN 3.3 g/dL (3.5-5.0); ALKALINE PHOSPHATASE 84 U/L (32-122); BUN 28 mg/dL (8-22); CALCIUM 8.3 mg/dL (8.8-10.2); CHLORIDE 104 mmol/L (98-107); COSMO 287; CREATININE 0.7 mg/dL (0.7-1.2); ESTIMATED GFR > 60; GLUCOSE 133 mg/dL (70-104); GOT 15 U/L (10-34); GPT 13 U/L (10-44); POTASSIUM 4.1 mmol/L (3.5-5.1); SODIUM 140 mmol/L (136-145); TCO2 25 mmol/L (25-35); TOTAL PROTEIN 5.9 g/dL (6.3-8.3)
--- NOTE | 2019-04-04 07:21 | EKG Report ---
Test Performed on : 04/04/2019 06:09:13 AM Test Reason : NSTEMI Blood Pressure : / mmHG Vent. Rate : 087 BPM Atrial Rate : 087 BPM P-R Int : 176 ms QRS Dur : 086 ms QT Int : 370 ms P-R-T Axes : 068 062 164 degrees QTc Int : 445 ms Normal sinus rhythm. Possible Left atrial enlargement ST & T wave abnormality, consider lateral ischemia Abnormal ECG When compared with ECG of 03-APR-2019 07:14, Criteria for Inferior infarct are no longer present Nonspecific T wave abnormality now evident in Inferior leads Confirmed by Hammad Michelle MD ([id number]) on 04/04/2019 8:15:26 AM
[2019-04-04] MEDS: NORCO-7.5 PO PRN ×2 (07:40→16:35)
[2019-04-04] MEDS: PULMICORT INH SCH (08:08)
[2019-04-04] MEDS: LOPRESSOR PO SCH (08:56)
[2019-04-04] MEDS: PERICOLACE PO SCH (08:56)
[2019-04-04] MEDS: PRINZIDE 10/12.5MG PO SCH (08:56)
--- NOTE | 2019-04-04 09:29 | PROGRESS NOTE ---
DATE: 04/04/2019 INTERVAL HISTORY: No acute events overnight. SUBJECTIVE: He is denying any more chest pain. He is denying any shortness of breath. He does complain of occasional palpitation. VITALS: Temperature 97.4 degrees, pulse 86, respiratory 18, pressure blood pressure 99/65, saturating 98% 3 L nasal cannula. I turned his oxygen down to 2 L and he was still saturating 98%. PHYSICAL EXAMINATION: Not in acute distress.HEENT: Oral cavity is moist. Lungs: Air entry bilaterally equal. No wheeze rhonchi, crackles. Cardiovascular: S1, S2 normal. No murmur or gallop. Abdomen: Soft, nontender. Extremity: No extremity edema. NURSES AIDE: He is alert and oriented x3. LABS: Suggestive of leukocytosis with WBC of 16,000, hemoglobin 12.9, platelet of 198,000, BUN 28, creatinine 0.7, potassium is 4.1. No positive microbiological data. His blood cultures did not have any growth. ASSESSMENT AND PLAN: 1. Non-ST elevation myocardial infarction. 2. Acute hypoxic respiratory failure with active tobacco abuse. 3. Hypotension. 4. Bilateral pulmonary nodules. 5. History of cauda equina syndrome and chronic pain. 6. Posttraumatic stress disorder. 7. History of suicide ideation. PLAN: I will continue him on aspirin, Clopidogrel, Enoxaparin therapeutic dose. I am also keeping on high dose Atorvastatin and Metoprolol along with Lisinopril. I will keep him on his home dose of Lasix. The plan is to transfer patient to [facility]. The patient is in agreement for likely coronary angiography and further intervention. Cardiology team is in the process of talking to the [facility]. cc: David Sexton MD
[2019-04-04] MEDS: LASIX PO SCH (13:19)
[2019-04-04] MEDS: ASPIRIN PO SCH (13:19)
[2019-04-04] MEDS: PLAVIX PO SCH (13:20)
--- NOTE | 2019-04-04 15:06 | DISCHARGE SUMMARY ---
ADMISSION DATE: 04/02/2019 DISCHARGE DATE: 04/04/2019 INTERVAL HISTORY: No acute events. DISCHARGE DISPOSITION: [facility] for coronary angiography and possible intervention based on that. DISCHARGE CONDITION: Hemodynamically stable. The patient is breathing well on 2 L nasal cannula, maintaining saturation 97 to 98 percent. DISCHARGE DIAGNOSES: 1. Non-ST elevation myocardial infarction. 2. Acute hypoxic respiratory failure, likely due to underlying chronic obstructive pulmonary disease though it has not been formally diagnosed yet through lung function test. 3. Active tobacco abuse. 4. Bilateral pulmonary nodules. OTHER DIAGNOSES: 1. History of cauda equina syndrome after traumatic injury. 2. Chronic pain. 3. History of active tobacco abuse. 4. History of coronary artery disease requiring multiple stents in the past, the latest being in November 2014. 5. Essential hypertension. DISCHARGE MEDICATIONS: Currently the patient is on: 1. Atorvastatin 80 mg at nighttime. 2. Albuterol ipratropium inhaled bronchodilator 3 mL every 4 hours. 3. Aspirin 81 mg daily. 4. Pulmicort 0.5 mg inhaled b.i.d. 5. Clopidogrel 75 mg daily. 6. Enoxaparin 100 mg subcutaneously every 12 hours. 7. Furosemide 40 mg daily. 8. [place] 7.5 one tablet every 6 hours as needed. 9. Lisinopril 10 mg 1 tablet daily. 10. Metoprolol 25 mg b.i.d. 11. Pantoprazole 40 mg daily. 12. Senna 1 tablet b.i.d. VITALS: Temperature 97.4 degrees, pulse 86, respiratory 18, blood pressure 99/65, saturating 95% on 2 L nasal cannula. PHYSICAL EXAMINATION: General: Mr. Rich is not in acute distress. HEENT: Oral cavity is moist. Respiratory: Air entry bilaterally equal. No wheeze or crackles. Cardiovascular: Normal. No murmur, gallop or rub. Abdomen: Soft, nontender. Extremity: No edema. Neurologic: He is alert and oriented x3. He had intact dorsalis pedis, posterior tibial pulses. Skin: Turgor and capillary refill time are normal. LABORATORY: WBC 19279, likely due to steroid induced leukocytosis. Hemoglobin 12.9, platelet 198,000. His eosinophil count is 0%. Potassium 4.1, sodium 140, BUN 28, creatinine 0.7. His glucose is 133. His troponin on presentation was 15, which increased up to 82 within 12 hours of presentation and then it started going down to 60. Urine toxicology was positive for opiates and oxycodone. Blood culture no growth to date. IMAGIN. Chest CT on April 02 had increasing tiny scattered bilateral pulmonary nodules of indeterminate appearance, scattered linear atelectasis in lung bases and advanced coronary artery disease. 2. Echocardiogram on April 02 had sclerosed aortic valve leaflet, normal pulmonic, tricuspid, and mitral valve with mild tricuspid regurgitation, mild mitral regurgitation. There was no aortic stenosis or regurgitation. Normal left ventricular cavity size, left ventricular asymmetric hypertrophy with ejection fraction of 60% without any pericardial effusion or obvious intracardiac mass or thrombus. 3. Chest x-ray on April 03 had interval improvement. 4. Electrocardiogram on presentation had sinus tachycardia, possible left atrial enlargement, inferior infarct. It also had marked ST abnormality suspicious for anterolateral subendocardial injury. Electrocardiogram on 04/04/2019 had normal sinus rhythm, possible left atrial enlargement, ST and T wave abnormality, consider lateral ischemia. CONSULTATIONS DURING HOSPITALIZATION: 1. Pulmonology, Dr. Carey. 2. Cardiology, Dr. Carlisle. HOSPITAL COURSE SUMMARY: Mr. Rich is a 63-year-old man with past medical history of coronary artery disease and multiple myocardial infarction requiring 6 stents, the latest being in November 2014, who came in on 04/02/2019 with chief complaints of chest pain, shortness of breath, nausea and vomiting. He has had chest discomfort symptoms for about 2 to 3 weeks duration, which will happen during physical exertion or it could also happen at rest. He did not seek any medical attention, however on the day of presentation when he came out of bed, and was dressing up for the day, he started developing midsternal chest pain from stomach to throat radiating to both shoulders, jaw and neck. He also was experiencing tightness around neck and arms, had nausea, vomiting, subjective shortness of breath, lightheadedness, so he decided to come to the hospital. In the emergency room, he was found to have temperature of 97.8 degrees, pulse of 101, respiratory rate of 20, blood pressure of 138/89, and he was saturating 91 percent on room air. His initial labs were largely unremarkable except troponin of 15. He was diagnosed with acute hypoxic respiratory failure, likely thought to be related to acute chronic obstructive pulmonary disease exacerbation and was started on inhaled bronchodilators and intravenous steroids and was admitted for further management. On presentation, his EKG did have marked ST-segment depression in anterolateral leads from V2 to V6 and his repeat troponin started increasing. He was given a stat dose of aspirin. He was continued on his home baby aspirin, Plavix. His atorvastatin dose was increased to 80 mg and was started on therapeutic enoxaparin and Cardiology was consulted for further management. DISPOSITION: It was decided to transfer patient to [facility] for further intervention considering his prior history of coronary artery disease, myocardial infarction, and present presentation of non-ST elevation myocardial infarction during this admission. TIME SPENT: 25 minutes of time was spent in preparing discharge summary. cc: David Sexton MD MTDD
[2019-04-04 15:12] VITALS: BP 103/68
--- NOTE | 2019-04-04 19:38 | CARDIOLOGY PROGRESS NOTE ---
DATE: 04/04/2019 CHIEF COMPLAINT: Chest pain. SUBJECTIVE: Mr. Rich has had an uneventful past 24 hours. No more chest pain. I had contacted the transfer center and the [facility] coordinator to get him over to the [facility] for a heart catheterization; however, they did not have any beds available. The patient is eating supper, and he is feeling fine. OBJECTIVE: Vital Signs: Blood pressure 103/68, temperature 97.5, pulse 78, respirations 18. General: He is awake, alert and oriented. HEENT: Unremarkable. Chest: Diminished breath sounds. Cardiovascular: Heart sounds regular and rhythmic. No gallop or murmur. Abdomen: Nontender. Extremities: No edema. Neurologic: Follows commands. Moves 4 extremities. BLOOD WORK: Sodium 140, potassium 4.1, BUN 28, creatinine 0.7. Hemoglobin 12.9, white cell count 16,690, platelet count 198,000. EKG from this morning shows sinus rhythm with left atrial enlargement and diffuse ST and T abnormality in the lateral leads. IMPRESSION: 1. The patient presented with chest pain, non-ST myocardial infarction. 2. History of severe coronary heart disease, multivessel. 3. Chronic obstructive pulmonary disease. 4. Tobacco user. RECOMMENDATIONS: At this time we are waiting for a bed in [place]. He really needs to have a heart catheterization for definitive diagnosis and then consider coronary bypass surgery as was suggested before. Presently he is stable on enoxaparin, aspirin, clopidogrel, Protonix, lisinopril and metoprolol. We will continue to watch him here at [place] until a bed becomes available in [place]. Thank you again for the opportunity to participate in his care. cc: Elder Carlisle MD
== END 2019-04-04 19:45 | disposition short-term general hospital (02) | DRG 280 ==
LOC: SUPCPDRO → ED 06:25 → SUATTDRO 08:44 → EDIPHOLD 08:44 → 4N 15:21 → 2N 04-03 18:12
PROVIDERS: ATTEND Internal Medicine